=== PATIENT | female | born 1950 | race Caucasian/White ===

== ENCOUNTER → 2018-06-09 | Outpatient (CLI) | payer MEDICARE ==
--- NOTE | 2018-06-10 12:22 | MM ---
Reason for exam: screening (asymptomatic). Last mammogram was performed 3 years and 5 months ago. History: Patient is postmenopausal. Family history of breast cancer in maternal grandmother. Silicone gel implants in both breasts. Silicone gel implant in the left breast. Silicone gel implant in the right breast. Physical Findings: A clinical breast exam by your physician is recommended on an annual basis and results should be correlated with mammographic findings. MG 3D Screen Mammo Imp/Cad Bilateral CC, MLO, and ID view(s) were taken. Prior study comparison: December 26, 2014, mammogram. The breast tissue is heterogeneously dense. This may lower the sensitivity of mammography. There is chronic nodularity in the left breast. Bilateral implants are intact. ASSESSMENT: Benign, BI-RAD 2 RECOMMENDATION: Routine screening mammogram of both breasts in 1 year.
== END | disposition home or self-care (01) ==
LOC: RADMAMWWP 09:00
PROVIDERS: ATTEND Family Medicine
DX: Z12.31 Encounter for screening mammogram for malignant neoplasm of breast (principal); Z98.82 Breast implant status
CPT/HCPCS: 77063; 77067

== ENCOUNTER → 2019-04-13 | Outpatient (CLI) | payer MEDICARE | END | disposition home or self-care (01) | LOC: RADMRIMAIN 14:18 | PROVIDERS: ATTEND Surgery | DX: Z53.9 Procedure and treatment not carried out, unspecified reason (principal) ==

== ENCOUNTER → 2019-04-27 | Outpatient (CLI) | payer MEDICARE | END | disposition home or self-care (01) | LOC: RADMRIMAIN 07:54 | PROVIDERS: ATTEND Surgery | DX: Z53.9 Procedure and treatment not carried out, unspecified reason (principal) ==

== ENCOUNTER → 2019-06-22 | Outpatient (CLI) | payer MEDICARE ==
--- NOTE | 2019-06-23 09:07 | BMR ---
EXAMINATION TYPE: MR breast BILAT wo/w con DATE OF EXAM: 06/22/2019 COMPARISON: 3-D screening mammogram June 09, 2018 BI-RADS 2. HISTORY: Rt breast indentation or disorder of breast per order. Presumed abnormal physical exam. Hist ory of bilateral silicone breast implants. CONTRAST: Multiplanar, multisequence images of the breasts were acquired utilizing 5.5 mL intravenous Gadavist gadolinium contrast. TECHNIQUE: A series of fat and water weighted images in the long and short axis views of both breasts are obtained in conjunction with dynamic contrast MRI with subtraction technique. Three-dimensional and additional postprocessing imaging is created on independent workstation and reviewed during offi cial interpretation of this study. FINDINGS: There is redemonstration of bilateral subglandular silicone implants with slightly lobulate d contour and few prominent folds identified bilaterally. Intracapsular rupture cannot be excluded bi laterally but Implant sizes are fairly symmetric in appearance and felt preserved. There is no eviden ce of extraluminal silicone to suggest outer capsule rupture. There is heterogeneously dense fibroglandular tissue anterior to both implants redemonstrated. T2-stan ghted images show a few simple-appearing thin-walled cysts bilaterally, for reference there is a 5 x 3 mm thin-walled cyst medially in the left breast axial image 21 series [address]ayed postcontra [address] images show no suspicious enhancing intramammary adenopathy. With regards to the right breast. No suspicious enhancing masses or pathologic enhancement identified . No suspicious skin thickening. Chest wall is intact. No concerning axillary adenopathy is present. With regards to the left breast. No suspicious enhancing masses or pathologic enhancement. No abnorma l skin thickening. Chest wall is intact. No suspicious adenopathy noted. IMPRESSION: No MRI evidence for invasive malignancy in either breast. No MRI evidence for extracapsul ar implant rupture. BI-RADS 2 benign findings Recommendation: Manage palpable abnormality on clinical basis. Return to routine follow-up. Patient c urrently due for annual bilateral breast mammogram.
== END | disposition home or self-care (01) ==
LOC: RADMRIMAIN 08:06
PROVIDERS: ATTEND Surgery
DX: N64.9 Disorder of breast, unspecified (principal)
CPT/HCPCS: C8937; C8908; A9585; 77049

== ENCOUNTER → 2020-05-30 | Outpatient (CLI) | payer MEDICARE ==
--- NOTE | 2020-05-30 13:06 | XR ---
Right hip HISTORY: Trauma one week prior, pain 2 views of the right hip Bone mineralization, joint spaces and alignment are maintained. IMPRESSION: No fracture or dislocation is evident.
== END | disposition home or self-care (01) ==
LOC: RADXRMAIN 09:38
PROVIDERS: ATTEND Nurse Practitioner Family
DX: M25.551 Pain in right hip (principal)
CPT/HCPCS: 73502

== ENCOUNTER → 2020-07-26 | Outpatient (CLI) | payer MEDICARE ==
--- NOTE | 2020-07-26 11:03 | XR ---
EXAM TYPE: LUMBAR SPINE X RAY SERIES COMPARISON: NONE HISTORY: Right pelvic pain TECHNIQUE: 4 views are submitted. FINDINGS: Alignment is anatomic. The pedicles are intact. The transverse processes are intact. There is mode rate multilevel degenerative disc disease and facet arthropathy with the grade 1 anterolisthesis L4 o n L5. IMPRESSION: 1. Multilevel degenerative disc disease and facet arthropathy with grade 1 anterolisthesis L4 on L5. Foraminal encroachment suspected. Consider MRI follow-up.
--- NOTE | 2020-07-26 11:04 | XR ---
EXAMINATION TYPE: XR pelvis AP view DATE OF EXAM: 07/26/2020 COMPARISON: NONE HISTORY: Pain The osseous structures are intact and the joint spaces are preserved. No acute fracture is seen. Vi sualized bowel gas pattern is nonspecific. Due to change lower lumbar spine. IMPRESSION: 1. No acute fracture.
== END | disposition home or self-care (01) ==
LOC: RADXRMAIN 10:34
PROVIDERS: ATTEND Family Medicine
DX: M51.36 Other intervertebral disc degeneration, lumbar region (principal); M43.16 Spondylolisthesis, lumbar region
CPT/HCPCS: 72100; 72170

== ENCOUNTER → 2020-10-17 | Outpatient (CLI) | payer MEDICARE ==
--- NOTE | 2020-10-18 12:54 | MM ---
Reason for exam: screening (asymptomatic). Last mammogram was performed 2 years and 4 months ago. History: Patient is postmenopausal. Family history of breast cancer in maternal grandmother. Silicone gel implants in both breasts. Silicone gel implant in the left breast. Silicone gel implant in the right breast. Took hormonal contraceptives for 2 years. Physical Findings: A clinical breast exam by your physician is recommended on an annual basis and results should be correlated with mammographic findings. MG 3D Screen Mammo Imp/Cad Bilateral CC, MLO, and ID view(s) were taken. Prior study comparison: June 09, 2018, bilateral MG 3d screen mammo imp/cad. December 26, 2014, mammogram. The breast tissue is heterogeneously dense. This may lower the sensitivity of mammography. Bilateral breast implants are intact. ASSESSMENT: Negative, BI-RAD 1 RECOMMENDATION: Routine screening mammogram of both breasts in 1 year.
== END | disposition home or self-care (01) ==
LOC: RADMAMWWP 15:30
PROVIDERS: ATTEND Family Medicine
DX: Z12.31 Encounter for screening mammogram for malignant neoplasm of breast (principal); Z78.0 Asymptomatic menopausal state; Z80.3 Family history of malignant neoplasm of breast; Z79.3 Long term (current) use of hormonal contraceptives
CPT/HCPCS: 77063; 77067

== ENCOUNTER 2021-03-14 17:21 | Inpatient (IN) | payer MEDICARE ==
[~2021-03-14 17:21] MED LIST: LACTATED RINGERS 1,000 ML IV ONE; SODIUM CHLORIDE 0.9% 1,000 ML IV ONE
[2021-03-14] MEDS ORDERED: MORPHINE SULFATE 2 MG/ML SYRINGE IV STA (17:48)
--- NOTE | 2021-03-14 17:48 | ED ---
General Adult HPI - General Chief complaint: Abdominal Pain Stated complaint: GI bleed Time Seen by Provider: 03/14/21 17:30 Source: patient, EMS Mode of arrival: EMS Limitations: no limitations - History of Present Illness Initial comments: Dictation was produced using [employer] dictation software. please excuse any grammatical, word or spelling errors. Chief Complaint: 70-year-old trevor presents to the emergency department for abdominal pain and GI bleed History of Present Illness: 70-year-old feel she presents to the emergency dep artment with a one-day history of abdominal pain GI bleed. Patient states her pain is suprapubic. Patient reports that her pain is severe and radiates to the back. Patient states her symptoms began today. After the pain she noticed that she was having coffee-ground emesis and bloody stools. Patient denies any history of GI bleed. No history of abdominal infections. She does have a history of hysterectomy and tubal ligation. Patient does not have any significant comorbidities. He does not take an anti-coagulation medications. Denies any fever or constitutional symptoms. The ROS documented in this emergency department record has been reviewed and confirmed by me. Those systems with pertinent positive or negative responses have been documented in the HPI. All other systems are other negative and/or noncontributory. PHYSICAL EXAM: General Impression: Alert and oriented x3, not in acute distress HEENT: Normocephalic atraumatic, extra-ocular movements intact, pupils equal and reactive to light bilaterally, mucous membranes moist. Cardiovascular: Heart regular rate and rhythm Chest: Able to complete full sentences, no retractions, no tachypnea Abdomen: abdomen soft, mild palpable tenderness to the suprapubic area, non- distended, no organomegaly Musculoskeletal: Pulses present and equal in all extremities, no peripheral edema Motor: no focal deficits noted Neurological: CN II-XII grossly intact, no focal motor or sensory deficits noted Skin: Intact with no visualized rashes Psych: Normal affect and mood Rectal exam: There is positive blood ED course: 70-year-old female presents to the emergency Department for GI bleed and abdominal pain. Vital signs upon arrival are within acceptable limits. Laboratory evaluation obtained. CBC, metabolic panel and coag panel are within acceptable limits. No lactic acidosis. So, blood is positive. Computed tomography scan was obtained showing intussusception of the ileum. There is suspected lipoma at ileum that surgery was delayed site. There is evidence of bowel obstruction. Patient reevaluated bedside at 8:10 PM. She still symptomatic with pain in her abdomen. Patient given more IV analgesics. Case discussed with general surgery Dr. Castro. who will review the films. Dr. Castro reviewed the images and will board patient for emergent operative intervention. Patient will be nothing by mouth. Patient be admitted to Dr. Castro's service. Patient started on ceftriaxone and Flagyl. EKG interpretation: Ventricular rate 56, sinus bradycardia,. Interval 186, QRS 106, QTC 449. No HI prolongation, no QTC prolongation, no ST or T-wave changes noted. Overall, this EKG is unremarkable - Related Data Home Medications Medication Instructions Recorded Confirmed ALPRAZolam [Xanax] 0.25 mg PO HS 03/04/15 03/14/21 Multivitamins, Thera [Multivitamin] 1 tab PO DAILY 03/04/15 03/14/21 5Hydroxytryptophan(Oxitriptan) 400 mg PO DAILY 03/14/21 03/14/21 [5-Htp] Ascorbic Acid [Vitamin C] 1,000 mg PO DAILY 03/14/21 03/14/21 Calcium Carbonate [Calcium] 1,200 mg PO DAILY 03/14/21 03/14/21 Cholecalciferol [Vitamin D3 (25 50 mcg PO DAILY 03/14/21 03/14/21 Mcg = 1000 Iu)] Rosuvastatin Calcium [Crestor] 5 mg PO HS 03/14/21 03/14/21 Turmeric Root Extract [Turmeric] 500 mg PO DAILY 03/14/21 03/14/21 Allergies Allergy/AdvReac Type Severity Reaction Status Date / Time Penicillins Allergy Unknown Rash/Hives Verified 03/14/21 18:35 NUMBING INJECTION AT DENTIST Allergy Unknown Rash/Hives Uncoded 03/14/21 17:30 Review of Systems ROS Statement: Those systems with pertinent positive or pertinent negative responses have been documented in the HPI. ROS Other: All systems not noted in ROS Statement are negative. Past Medical History Past Medical History: No Reported History History of Any Multi-Drug Resistant Organisms: None Reported Past Surgical History: Hysterectomy, Tubal Ligation Additional Past Surgical History / Comment(s): LEFT EAR SURG. Past Anesthesia/Blood Transfusion Reactions: No Reported Reaction, Family History of Problems w/ Anesthesia Additional Past Anesthesia/Blood Transfusion Reaction / Comment(s): DAUGHTER = PONV Past Psychological History: Anxiety Smoking Status: Never smoker Past Alcohol Use History: Occasional Past Drug Use History: Marijuana - Past Family History Father Family Medical History: Cancer Additional Family Medical History / Comment(s): COLON CA Mother Family Medical History: No Reported History General Exam Limitations: no limitations Course Vital Signs 03/14/21 03/14/21 17:22 18:58 Temperature 98.4 F Pulse Rate 60 80 Respiratory 20 18 Rate Blood Pressure 117/62 120/63 O2 Sat by Pulse 99 95 Oximetry Medical Decision Making - Lab Data Result diagrams: 03/14/21 17:40 03/14/21 17:40 Lab Results 03/14/21 03/14/21 03/14/21 Range/Units 17:35 17:40 17:40 WBC 10.9 H (3.8-10.6) k/uL RBC 4.73 (3.80-5.40) m/uL Hgb 14.3 (11.4-16.0) gm/dL Hct 43.1 (34.0-46.0) % MCV 91.0 (80.0-100.0) fL MCH 30.2 (25.0-35.0) pg MCHC 33.2 (31.0-37.0) g/dL RDW 13.0 (11.5-15.5) % Plt Count 246 (150-450) k/uL MPV 9.0 Neutrophils % 87 % Lymphocytes % 9 % Monocytes % 2 % Eosinophils % 0 % Basophils % 0 % Neutrophils # 9.5 H (1.3-7.7) k/uL Lymphocytes # 1.0 (1.0-4.8) k/uL Monocytes # 0.3 (0-1.0) k/uL Eosinophils # 0.0 (0-0.7) k/uL Basophils # 0.0 (0-0.2) k/uL PT 10.3 (9.0-12.0) sec INR 0.9 (<1.2) APTT 23.1 (22.0-30.0) sec Sodium (137-145) mmol/L Potassium (3.5-5.1) mmol/L Chloride (98-107) mmol/L Carbon Dioxide (22-30) mmol/L Anion Gap mmol/L BUN (7-17) mg/dL Creatinine (0.52-1.04) mg/dL Est GFR (CKD-EPI)AfAm (>60 ml/min/1.73 sqM) Est GFR (CKD-EPI)NonAf (>60 ml/min/1.73 sqM) Glucose (74-99) mg/dL Plasma Lactic Acid Carlos Manuel (0.7-2.0) mmol/L Calcium (8.4-10.2) mg/dL Magnesium (1.6-2.3) mg/dL Total Bilirubin (0.2-1.3) mg/dL AST (14-36) U/L ALT (4-34) U/L Alkaline Phosphatase (38-126) U/L Total Protein (6.3-8.2) g/dL Albumin (3.5-5.0) g/dL Stool Occult Blood (Negative) Blood Type Blood Type Confirm A Positive Blood Type Recheck Bld Type Recheck Status Antibody Screen Spec Expiration Date 03/14/21 03/14/21 03/14/21 Range/Units 17:40 17:40 17:40 WBC (3.8-10.6) k/uL RBC (3.80-5.40) m/uL Hgb (11.4-16.0) gm/dL Hct (34.0-46.0) % MCV (80.0-100.0) fL MCH (25.0-35.0) pg MCHC (31.0-37.0) g/dL RDW (11.5-15.5) % Plt Count (150-450) k/uL MPV Neutrophils % % Lymphocytes % % Monocytes % % Eosinophils % % Basophils % % Neutrophils # (1.3-7.7) k/uL Lymphocytes # (1.0-4.8) k/uL Monocytes # (0-1.0) k/uL Eosinophils # (0-0.7) k/uL Basophils # (0-0.2) k/uL PT (9.0-12.0) sec INR (<1.2) APTT (22.0-30.0) sec Sodium 134 L (137-145) mmol/L Potassium 4.2 (3.5-5.1) mmol/L Chloride 101 (98-107) mmol/L Carbon Dioxide 23 (22-30) mmol/L Anion Gap 10 mmol/L BUN 12 (7-17) mg/dL Creatinine 0.55 (0.52-1.04) mg/dL Est GFR (CKD-EPI)AfAm >90 (>60 ml/min/1.73 sqM) Est GFR (CKD-EPI)NonAf >90 (>60 ml/min/1.73 sqM) Glucose 124 H (74-99) mg/dL Plasma Lactic Acid Carlos Manuel 1.2 (0.7-2.0) mmol/L Calcium 9.7 (8.4-10.2) mg/dL Magnesium 2.0 (1.6-2.3) mg/dL Total Bilirubin 0.7 (0.2-1.3) mg/dL AST 32 (14-36) U/L ALT 29 (4-34) U/L Alkaline Phosphatase 68 (38-126) U/L Total Protein 7.0 (6.3-8.2) g/dL Albumin 4.4 (3.5-5.0) g/dL Stool Occult Blood (Negative) Blood Type A Positive Blood Type Confirm Blood Type Recheck No Previous Record Bld Type Recheck Status CABO Indicated Antibody Screen NEGATIVE Spec Expiration Date 03/17/2021 - 233903/14/21 Range/Units 18:15 WBC (3.8-10.6) k/uL RBC (3.80-5.40) m/uL Hgb (11.4-16.0) gm/dL Hct (34.0-46.0) % MCV (80.0-100.0) fL MCH (25.0-35.0) pg MCHC (31.0-37.0) g/dL RDW (11.5-15.5) % Plt Count (150-450) k/uL MPV Neutrophils % % Lymphocytes % % Monocytes % % Eosinophils % % Basophils % % Neutrophils # (1.3-7.7) k/uL Lymphocytes # (1.0-4.8) k/uL Monocytes # (0-1.0) k/uL Eosinophils # (0-0.7) k/uL Basophils # (0-0.2) k/uL PT (9.0-12.0) sec INR (<1.2) APTT (22.0-30.0) sec Sodium (137-145) mmol/L Potassium (3.5-5.1) mmol/L Chloride (98-107) mmol/L Carbon Dioxide (22-30) mmol/L Anion Gap mmol/L BUN (7-17) mg/dL Creatinine (0.52-1.04) mg/dL Est GFR (CKD-EPI)AfAm (>60 ml/min/1.73 sqM) Est GFR (CKD-EPI)NonAf (>60 ml/min/1.73 sqM) Glucose (74-99) mg/dL Plasma Lactic Acid Carlos Manuel (0.7-2.0) mmol/L Calcium (8.4-10.2) mg/dL Magnesium (1.6-2.3) mg/dL Total Bilirubin (0.2-1.3) mg/dL AST (14-36) U/L ALT (4-34) U/L Alkaline Phosphatase (38-126) U/L Total Protein (6.3-8.2) g/dL Albumin (3.5-5.0) g/dL Stool Occult Blood Positive H (Negative) Blood Type Blood Type Confirm Blood Type Recheck Bld Type Recheck Status Antibody Screen Spec Expiration Date Disposition Clinical Impression: Enteric intussusception Disposition: ADMITTED IP TO THIS [facility] Condition: Critical Referrals: Max Gusman DO [Primary Care Provider] - 1-2 days
[2021-03-14] MEDS ORDERED: ONDANSETRON 4 MG/2 ML VIAL IVP STA (17:49)
[2021-03-14 17:52] LABS: Basophils % (A) 0 %; Eosinophils % (A) 0 %; HCT 43.1 % (34.0-46.0); HGB 14.3 gm/dL (11.4-16.0); Lymphocytes % (A) 9 %; MCH 30.2 pg (25.0-35.0); MCHC 33.2 g/dL (31.0-37.0); Monocytes # (A) 0.3 k/uL (0-1.0); Monocytes % (A) 2 %; Neutrophils # (A) 9.5 k/uL (1.3-7.7); Neutrophils % (A) 87 %; Platelet Count 246 k/uL (150-450); RBC 4.73 m/uL (3.80-5.40); WBC 10.9 k/uL (3.8-10.6)
[2021-03-14 17:59] LABS: ALT 29 U/L (4-34); AST 32 U/L (14-36); African American GFR (CKD) >90 (>60 ml/min/1.73 sqM); Albumin 4.4 g/dL (3.5-5.0); Alkaline Phosphatase 68 U/L (38-126); Anion Gap 10 mmol/L; Blood Urea Nitrogen 12 mg/dL (7-17); Calcium 9.7 mg/dL (8.4-10.2); Carbon Dioxide 23 mmol/L (22-30); Chloride 101 mmol/L (98-107); Glucose 124 mg/dL (74-99); Non-African American GFR(CKD) >90 (>60 ml/min/1.73 sqM); Potassium 4.2 mmol/L (3.5-5.1); Sodium 134 mmol/L (137-145); Total Bilirubin 0.7 mg/dL (0.2-1.3)
[2021-03-14 18:00] LABS: INR 0.9 (<1.2); Partial Thromboplastin Time 23.1 sec (22.0-30.0); Prothrombin Time 10.3 sec (9.0-12.0)
[2021-03-14] MEDS ORDERED: PANTOPRAZOLE 40 MG/10 ML VIAL IVP STA (19:03)
--- NOTE | 2021-03-14 20:06 | CT ---
EXAMINATION TYPE: CT angio abdomen pelvis DATE OF EXAM: 03/14/2021 COMPARISON: None HISTORY: Acute abdominal pain, rectal bleeding, nausea and vomiting. GI bleed protocol. CT DLP: 1155 mGycm Automated exposure control for dose reduction was used. CONTRAST: Performed without and with IV Contrast, patient injected with 100 mL of Isovue 300. Images obtained from the diaphragm to the floor the pelvis without and with IV contrast. There are Th ree-D postprocessed images. FINDINGS: Lung bases are clear. Heart size is normal. There is no pericardial effusion. Liver spleen stomach pa ncreas gallbladder appear intact. Bowel is not dilated. Kidneys have normal size. There is no hydrone phrosis. There is no evidence of a renal calculus. There is some dilated loops of small bowel with fecal material in the lower abdomen. These measure up to 3.4 cm. Large bowel is mostly empty. There is 2.7 cm fat density mass on the lateral aspect of th e cecum consistent with lipoma. This could be lipoma of the terminal ileum with ileocolic intussuscep tion. The contrast images show normal-sized abdominal aorta. There is arterial flow in the celiac artery an d superior mesenteric artery. There is arterial flow in the renal and iliac and femoral arteries. The re is no evidence of hemodynamic stenosis. There is no contrast extravasation. Bladder distends smoothly. The lumbar vertebrae have normal spaci ng. There is a minimal degenerative L4-5 spondylolisthesis. There is no lumbar compression fracture. The bony pelvis is intact. IMPRESSION: There is evidence of mechanical distal small bowel obstruction. There is a lipoma in the cecum that a ppears to be related to the lead point of ileocolic intussusception. No significant angiographic abnormality.
[2021-03-14] MEDS ORDERED: MORPHINE SULFATE 4 MG/ML SYRINGE IV STA (20:08)
[2021-03-14] MEDS ORDERED: NALOXONE 0.4 MG/ML 1 ML VIAL IV PRN ×2 (20:14→23:45)
[2021-03-14] MEDS ORDERED: MORPHINE SULFATE 4 MG/ML SYRINGE IV PRN (20:14)
[2021-03-14] MEDS ORDERED: SODIUM CHLORIDE 0.9% 1,000 ML IV SCH (20:15)
[2021-03-14] MEDS ORDERED: metroNIDAZOLE-NS PMX 500 MG in SALINE 1 100ML.BAG IVPB STA (20:16)
[2021-03-14] MEDS ORDERED: PROPOFOL 10 MG/ML 20 ML VIAL IV ONE (21:07)
[2021-03-14] MEDS ORDERED: NEOSTIGMINE 1 MG/ML 10 ML VIAL ONE (21:07)
[2021-03-14] MEDS ORDERED: SUCCINYLCHOLINE CHLORIDE 100 MG/5 ML SYR IV ONE (21:07)
[2021-03-14] MEDS ORDERED: PHENYLEPHRINE-0.9% NACL SYG 1,000 MCG/10 ML SYRINGE ONE (21:07)
[2021-03-14] MEDS ORDERED: fentaNYL (PF) 50 MCG/ML 2 ML AMP ONE (21:07)
[2021-03-14] MEDS ORDERED: MIDAZOLAM 2 MG/2 ML VIAL ONE (21:07)
[2021-03-14] MEDS ORDERED: GLYCOPYRROLATE 0.2 MG/ML 2 ML VIAL ONE (21:07)
[2021-03-14] MEDS ORDERED: ROCURONIUM 10 MG/ML (5 ML VIAL) IV ONE (21:07)
[2021-03-14] MEDS ORDERED: ONDANSETRON 4 MG/2 ML VIAL ONE (21:07)
--- NOTE | 2021-03-14 21:08 | P.GSHP ---
History of Present Illness H&P Date: 03/14/21 70-year-old female presents to the emergency department with severe abdominal pain that began this afternoon. She states that she began having some emesis episodes and also was noticing some blood in her stool. She states she had never had this issue previously. On workup, she did have a CT of the abdomen and pelvis that was concerning for intussusception of the ileocolic junction. Patient states her only previous abdominal surgeries are tubal ligation and hysterectomy. She denies any fevers, chills, chest pain or shortness of breath. Currently, no additional complaints. - Review of Systems All systems: negative Past Medical History Past Medical History: No Reported History History of Any Multi-Drug Resistant Organisms: None Reported Past Surgical History: Hysterectomy, Tubal Ligation Additional Past Surgical History / Comment(s): LEFT EAR SURG. Past Anesthesia/Blood Transfusion Reactions: No Reported Reaction, Family History of Problems w/ Anesthesia Additional Past Anesthesia/Blood Transfusion Reaction / Comment(s): DAUGHTER = PONV Past Psychological History: Anxiety Smoking Status: Never smoker Past Alcohol Use History: Occasional Past Drug Use History: Marijuana - Past Family History Father Family Medical History: Cancer Additional Family Medical History / Comment(s): COLON CA Mother Family Medical History: No Reported History Medications and Allergies Home Medications Medication Instructions Recorded Confirmed Type ALPRAZolam [Xanax] 0.25 mg PO HS 03/04/15 03/14/21 History Multivitamins, Thera [Multivitamin] 1 tab PO DAILY 03/04/15 03/14/21 History 5Hydroxytryptophan(Oxitriptan) 400 mg PO DAILY 03/14/21 03/14/21 History [5-Htp] Ascorbic Acid [Vitamin C] 1,000 mg PO DAILY 03/14/21 03/14/21 History Calcium Carbonate [Calcium] 1,200 mg PO DAILY 03/14/21 03/14/21 History Cholecalciferol [Vitamin D3 (25 50 mcg PO DAILY 03/14/21 03/14/21 History Mcg = 1000 Iu)] Rosuvastatin Calcium [Crestor] 5 mg PO HS 03/14/21 03/14/21 History Turmeric Root Extract [Turmeric] 500 mg PO DAILY 03/14/21 03/14/21 History Allergies Allergy/AdvReac Type Severity Reaction Status Date / Time Penicillins Allergy Unknown Rash/Hives Verified 03/14/21 18:35 NUMBING INJECTION AT DENTIST Allergy Unknown Rash/Hives Uncoded 03/14/21 17:30 Surgical - Exam Osteopathic Statement: *. No significant issues noted on an osteopathic structural exam other than those noted in the History and Physical/Consult. Vital Signs Temp Pulse Resp BP Pulse Ox 98.4 F 60 20 117/62 99 03/14/21 17:22 03/14/21 17:22 03/14/21 17:22 03/14/21 17:22 03/14/21 17:22 - General well nourished, no distress - Eyes normal ocular movement - Neck trachea midline - Respiratory normal respiratory effort - Abdomen Soft, tender to palpation in bilateral lower quadrants, mild distention, no rebound, no guarding - Psychiatric oriented to time, oriented to person, oriented to place Results - Labs 03/14/21 17:40 03/14/21 17:40 Abnormal Lab Results - Last 24 Hours (Table) 03/14/21 03/14/21 03/14/21 Range/Units 17:40 17:40 18:15 WBC 10.9 H (3.8-10.6) k/uL Neutrophils # 9.5 H (1.3-7.7) k/uL Sodium 134 L (137-145) mmol/L Glucose 124 H (74-99) mg/dL Stool Occult Blood Positive H (Negative) Diabetes panel 03/14/21 Range/Units 17:40 Sodium 134 L (137-145) mmol/L Potassium 4.2 (3.5-5.1) mmol/L Chloride 101 (98-107) mmol/L Carbon Dioxide 23 (22-30) mmol/L BUN 12 (7-17) mg/dL Creatinine 0.55 (0.52-1.04) mg/dL Glucose 124 H (74-99) mg/dL Calcium 9.7 (8.4-10.2) mg/dL AST 32 (14-36) U/L ALT 29 (4-34) U/L Alkaline Phosphatase 68 (38-126) U/L Total Protein 7.0 (6.3-8.2) g/dL Albumin 4.4 (3.5-5.0) g/dL Calcium panel 02/04/22 Range/Units 17:40 Calcium 9.7 (8.4-10.2) mg/dL Albumin 4.4 (3.5-5.0) g/dL Pituitary panel 03/14/21 Range/Units 17:40 Sodium 134 L (137-145) mmol/L Potassium 4.2 (3.5-5.1) mmol/L Chloride 101 (98-107) mmol/L Carbon Dioxide 23 (22-30) mmol/L BUN 12 (7-17) mg/dL Creatinine 0.55 (0.52-1.04) mg/dL Glucose 124 H (74-99) mg/dL Calcium 9.7 (8.4-10.2) mg/dL Adrenal panel 03/14/21 Range/Units 17:40 Sodium 134 L (137-145) mmol/L Potassium 4.2 (3.5-5.1) mmol/L Chloride 101 (98-107) mmol/L Carbon Dioxide 23 (22-30) mmol/L BUN 12 (7-17) mg/dL Creatinine 0.55 (0.52-1.04) mg/dL Glucose 124 H (74-99) mg/dL Calcium 9.7 (8.4-10.2) mg/dL Total Bilirubin 0.7 (0.2-1.3) mg/dL AST 32 (14-36) U/L ALT 29 (4-34) U/L Alkaline Phosphatase 68 (38-126) U/L Total Protein 7.0 (6.3-8.2) g/dL Albumin 4.4 (3.5-5.0) g/dL Assessment and Plan Plan: 70-year-old female with concern for intussusception of the ileocolic junction. Currently, only mild leukocytosis of 10.9. Plan is for exploratory laparotomy with reduction of intussusception and likely bowel resection. This was discussed with the patient in depth along with possibility of ostomy creation. Patient was explained the risks, benefits and alternatives to the procedure and did provide consent prior to attending the operating suite. Her was also present for this discussion. Patient will be provided with preoperative VTE prophylaxis and antibiotics. Further recommendations after procedure.
[2021-03-14] MEDS ORDERED: SODIUM CHLORIDE 0.9% 1,000 ML IV ONE (22:00)
[2021-03-14] MEDS ORDERED: LACTATED RINGERS 1,000 ML IV ONE (22:00)
[2021-03-14] MEDS ORDERED: HYDROmorphone 0.5 MG/0.5 ML SYRINGE IVP ONE (22:37)
[2021-03-14] MEDS ORDERED: HYDROmorphone 0.5 MG/0.5 ML SYRINGE IVP PRN (22:41)
[2021-03-14] MEDS ORDERED: ONDANSETRON 4 MG/2 ML VIAL IVP PRN (22:41)
--- NOTE | 2021-03-14 22:41 | P.OP ---
Date of Procedure: 03/14/21 Preoperative Diagnosis: Intussusception Postoperative Diagnosis: Small bowel intussusception Procedure(s) Performed: Exploratory laparotomy, reduction of intussusception, small bowel resection and anastomosis Anesthesia: MARK Surgeon: Efra Castro Pathology: other (small bowel intussusception) Condition: stable Disposition: floor Indications for Procedure: 70-year-old female presented to the emergency department with complaints of sudden onset abdominal pain that began this afternoon. She also was noted to have nausea, vomiting blood per rectum. On workup, there was concern for intussusception of the ileocolic region on CT of the abdomen and pelvis. Secondary to this, plan is for exploratory laparotomy. Risks, benefits and alternatives were presented to the patient and she did provide consent prior to attending the operating suite. Operative Findings: Small bowel intussusception at the distal ileum Description of Procedure: The patient was brought to the operating suite and placed in supine position on the operating table. Sedation was provided by anesthesia and the patient underwent endotracheal intubation. The patient was prepped and draped in regular sterile fashion. A midline vertical incision was made and dissection wa s carried to the fascia. The fascia was incised along the length of the incision. Immediate evisceration of dilated bowel was noted. The bowel was run from the ligament of Treitz distally. The terminal ileum was noted to have the intussusception of concern. Manual milking of the intussusceptum out of the intussuscipiens was performed. After reduction, bowel did not appear ischemic. Confirmation was made by using Doppler on the mesentery. Strong flow was noted through strong Doppler signals. The source of the intussusception was noted to be a palpable mass of the small bowel wall. Proximal and distal locations were decided upon for resection of this portion of the small bowel that contained this mass. Mesenteric defects were created and the small bowel was ligated using a YULISSA stapler 75. Enseal device was then used to dissect and ligate the specimen from the mesentery. At this point, a [id number], functional end to end anastomosis was created by creating 2 enterotomies and firing and YULISSA stapler 75 to create the anastomosis. TX 60 stapler was then used to close the following enterotomy. The staple line was then imbricated using interrupted 3-0 Vicryl suture. The resulting mesenteric defect was also closed using a running 3-0 Vicryl suture. Copious muss irrigation was then placed and removed from the abdomen. The incision was closed running looped PDS suture. Skin brice were placed. Sterile dressing was applied. The patient was awakened in the operating suite and taken to postanesthesia care unit in stable condition.
[2021-03-14] MEDS: HYDROmorphone 0.5 MG/0.5 ML SYRINGE IVP ONE ×2 (22:42→22:57)
[2021-03-14] MEDS ORDERED: HYDROmorphone 1 MG/ML 1 ML SYRINGE IVP ONE (22:49)
[2021-03-14] MEDS ORDERED: diphenhydrAMINE 50 MG/ML 1 ML VIAL IVP ONE (22:56)
[2021-03-14] MEDS: HYDROmorphone 1 MG/ML 1 ML SYRINGE IVP ONE ×2 (23:04→23:14)
[2021-03-14] MEDS ORDERED: ACETAMINOPHEN IV (For NPO) 1,000 MG/100 ML VIAL IVPB ONE (23:14)
[2021-03-14] MEDS ORDERED: ROPIVACAINE 5 MG/ML 30 ML VIAL EPIDURAL ONE (23:37)
--- NOTE | 2021-03-14 23:48 | P.ANPRN ---
Procedure Note - Anesthesia - Epidural/Spinal Epidural Continuous Time Out Performed: Yes Date of Procedure: 03/14/21 Procedure Start Time: 23:35 Procedure Stop Time: 23:47 Location of Patient: Phase I Indication: Acute Post-Operative Pain, Requested by Surgeon Sedation Type: Awake Preparation: Sterile Dressing Position: Sitting Catheter: Indwelling Needle Guage: 18 Injectate: Test Dose Lidocaine1.5% w/1:200,000 epi Blood Aspirated: No Pain Paresthesia on Injection Noted: No Events: Uneventful and Well Tolerated
[2021-03-14] MEDS: PHENYLEPHRINE 10 MG/ML VIAL IV ONE ×2 (23:54→23:56)
[2021-03-15] MEDS: PHENYLEPHRINE 10 MG/ML VIAL IV ONE (00:01)
[2021-03-15] MEDS: ePHEDrine 50 MG/ML 1 ML AMP IVP ONE ×4 (00:06→00:50)
[2021-03-15] MEDS: ROPIVACAINE 400 MG, HYDROMORPHONE (PF) 5 MG in SODIUM CHLORIDE 0.9% 170 ML EPIDURAL PRN ×2 (00:32→08:53)
[2021-03-15] MEDS: LACTATED RINGERS 1,000 ML IV SCH ×4 (04:03→22:50)
[2021-03-15] MEDS: HEPARIN SODIUM,PORCINE/PF 5,000 UNIT/0.5 ML SYRINGE SQ SCH ×4 (04:04→23:24)
--- NOTE | 2021-03-15 07:13 | P.PN ---
Progress Note - Text Progress Note Date: 03/15/21 Patient without complaints. Pain controlled. Epidural @ 4 ml/hr. Denies lower extremity weakness. Denies headache. Epidural site clean and dry. POD#1 s/p exlap - continue current epidural rate
[2021-03-15] MEDS: PANTOPRAZOLE 40 MG/10 ML VIAL IV SCH (07:34)
--- NOTE | 2021-03-15 09:22 | P.PN ---
Subjective Progress Note Date: 03/15/21 Patient seen and examined at bedside. States pain level is about a 2 out of 10. Denies nausea or vomiting. No bowel function. Denies any dizziness or headache at this time. Overnight, patient with some hypotensive episodes after epidural was placed. Objective - Vital Signs Vital signs: Vital Signs Temp 98.5 F 03/15/21 07:29 Pulse 95 03/15/21 04:35 Resp 16 03/15/21 07:30 BP 86/43 03/15/21 08:00 Pulse Ox 98 03/15/21 07:29 Intake & Output 03/14/21 03/15/21 03/15/21 18:59 06:59 18:59 Intake Total 400 700 Output Total 330 Balance 400 370 Weight 55.792 kg 55.792 kg Intake: IV 400 700 Output: Urine 300 Estimated Blood Loss 30 Other: Voiding Method Indwelling Catheter Indwelling Catheter - Constitutional General appearance: Present: cooperative, no acute distress - Respiratory Details: No difficulty with respiration - Gastrointestinal Gastrointestinal Comment(s): Soft, appropriate tenderness, nondistended, no rebound, no guarding - Psychiatric Psychiatric: Present: A&O x's 3 - Labs CBC & Chem 7: 03/14/21 17:40 03/14/21 17:40 Labs: Abnormal Lab Results - Last 24 Hours (Table) 03/14/21 03/14/21 03/14/21 Range/Units 17:40 17:40 18:15 WBC 10.9 H (3.8-10.6) k/uL Neutrophils # 9.5 H (1.3-7.7) k/uL Sodium 134 L (137-145) mmol/L Glucose 124 H (74-99) mg/dL Stool Occult Blood Positive H (Negative) Assessment and Plan Plan: 70-year-old female status post exploratory laparotomy and small bowel resection with reduction of intussusception. She is postoperative day #1. The patient has had some hypotensive episodes overnight. This was discussed with nursing and plan is for decreasing dose of epidural in seeing response. We will continue Welch catheter for strict I's and O's. We will also continue IV fluid resuscitation. Patient is not showing any signs of tachycardia at this time. She has no complaints. We will continue to closely monitor. I did recommend out of bed to the chair this morning. Keep nasogastric tube to low intermittent suction. Continue nothing by mouth until there is further bowel function. Continue IV antibiotics. Medical consult has been placed.
[2021-03-15] MEDS: metroNIDAZOLE-NS PMX 500 MG in SALINE 1 100ML.BAG IVPB SCH ×2 (10:44→18:17)
[2021-03-15 11:14] LABS: Basophils # (A) 0.03 X 10*3/uL (0.00-0.10); Basophils % (A) 0.2 %; Eosinophils # (A) 0 X 10*3/uL (0.04-0.35); Eosinophils % (A) 0 %; HCT 34.6 % (37.2-46.3); HGB 10.9 g/dL (12.0-15.0); Immature Grans, Automated 0.2 %; Lymphocytes # (A) 1.47 X 10*3/uL (0.90-5.00); Lymphocytes % (A) 11.9 %; MCH 29.2 pg (27.0-32.0); MCHC 31.5 g/dL (32.0-37.0); MCV 92.8 fL (80.0-97.0); Monocytes # (A) 0.64 X 10*3/uL (0.20-1.00); Monocytes % (A) 5.2 %; NRBC Per 100 WBC 0 /100 WBCS (0.0-0.0); Neutrophils % (A) 82.5 %; Platelet Count 201 X 10*3/uL (140-440); RBC 3.73 X 10*6/uL (4.10-5.20); RDW 13.2 % (11.5-14.5); WBC 12.37 X 10*3/uL (4.50-10.00)
[2021-03-15 11:21] LABS: African American GFR (CKD) 114.5 (60.0-200.0); Albumin 3.2 g/dL (3.8-4.9); Albumin/Globulin Ratio 2.46 (1.60-3.17); Anion Gap 8.4 mmol/L (10.00-18.00); BUN/Creat Ratio 12.8 Ratio (12.00-20.00); Blood Urea Nitrogen 6.4 mg/dL (9.0-27.0); Calcium 8.3 mg/dL (8.7-10.3); Carbon Dioxide 25.6 mmol/L (20.0-27.5); Globulin 1.3 g/dL (1.6-3.3); Non-African American GFR(CKD) 98.8 (60.0-200.0); Potassium 4.4 mmol/L (3.5-5.5); Total Bilirubin 0.3 mg/dL (0.30-1.20); Total Protein 4.5 g/dL (6.2-8.2)
--- NOTE | 2021-03-15 13:23 | P.CONS ---
History of Present Illness - Reason for Consult Intussusception - History of Present Illness Patient is pleasant 70-year-old female came in with the severe abdominal pain which started yesterday afternoon with the episodes of nausea vomiting along with blood in the stools. Patient had an abdominal CT which showed intussusception at the ileocolic junction patient underwent the laparotomy didn't do cessation was reduced and patient underwent resection of the bowel and anastomosis. Patient was only has an epidural patient is a drowsy be tired didn't pass gas yet. Pain is fairly well-controlled patient is presently has an epidural and Welch catheter in place. Patient has some leukocytosis. Patient is presently on Rocephin and metronidazole as per general surgery. REVIEW OF SYSTEMS: CONSTITUTIONAL: No fever, no malaise, no fatigue. HEENT: No recent visual problems or hearing problems. Denied any sore throat. CARDIOVASCULAR: No chest pain, orthopnea, PND, no palpitations, no syncope. PULMONARY: No shortness of breath, no cough, no hemoptysis. GASTROINTESTINAL: As mentioned in HPI NEUROLOGICAL: No headaches, no weakness, no numbness. HEMATOLOGICAL: Denies any bleeding or petechiae. GENITOURINARY: Denies any burning micturition, frequency, or urgency. MUSCULOSKELETAL/RHEUMATOLOGICAL: Denies any joint pain, swelling, or any muscle pain. ENDOCRINE: Denies any polyuria or polydipsia. The rest of the 14-point review of systems is negative. PHYSICAL EXAMINATION: GENERAL: Patient is drowsy and lethargic, not in any acute distress. Well developed, well nourished. HEENT: Pupils are round and equally reacting to light. EOMI. No scleral icterus. No conjunctival pallor. Normocephalic, atraumatic. No pharyngeal erythema. No thyromegaly. CARDIOVASCULAR: S1 and S2 present. No murmurs, rubs, or gallops. PULMONARY: Chest is clear to auscultation, no wheezing or crackles. ABDOMEN: Abdominal binder in place sluggish bowel sounds MUSCULOSKELETAL: No joint swelling or deformity. EXTREMITIES: No cyanosis, clubbing, or pedal edema. NEUROLOGICAL: Gross neurological examination did not reveal any focal deficits. SKIN: No rashes. Assessment and plan -Abdominal pain secondary to intussusception patient is status post laparotomy, bowel resection and end-to-end anastomosis. Continue incentive spirometry patient pain is fairly well controlled. -Leukocytosis secondary to above and patient is presently on Rocephin and metronidazole which will continue -Hypervolemic hyponatremia received IV fluids with improvement in serum sodium. -Hyperlipidemia: Patient will be resumed on statin DVT prophylaxis: As per primary service Past Medical History Past Medical History: No Reported History History of Any Multi-Drug Resistant Organisms: None Reported Past Surgical History: Hysterectomy, Tubal Ligation Additional Past Surgical History / Comment(s): LEFT EAR SURG. Past Anesthesia/Blood Transfusion Reactions: No Reported Reaction, Family History of Problems w/ Anesthesia Additional Past Anesthesia/Blood Transfusion Reaction / Comm: DAUGHTER = PONV Past Psychological History: Anxiety Additional Psychological History / Comment(s): STATES NO PROBLEM NOW. Smoking Status: Never smoker Past Alcohol Use History: Occasional Past Drug Use History: Marijuana - Past Family History Father Family Medical History: Cancer Additional Family Medical History / Comment(s): COLON CA Mother Family Medical History: No Reported History Medications and Allergies Home Medications Medication Instructions Recorded Confirmed Type ALPRAZolam [Xanax] 0.25 mg PO HS 03/04/15 03/14/21 History Multivitamins, Thera [Multivitamin] 1 tab PO DAILY 03/04/15 03/14/21 History 5Hydroxytryptophan(Oxitriptan) 400 mg PO DAILY 03/14/21 03/14/21 History [5-Htp] Ascorbic Acid [Vitamin C] 1,000 mg PO DAILY 03/14/21 03/14/21 History Calcium Carbonate [Calcium] 1,200 mg PO DAILY 03/14/21 03/14/21 History Cholecalciferol [Vitamin D3 (25 50 mcg PO DAILY 03/14/21 03/14/21 History Mcg = 1000 Iu)] Rosuvastatin Calcium [Crestor] 5 mg PO HS 03/14/21 03/14/21 History Turmeric Root Extract [Turmeric] 500 mg PO DAILY 03/14/21 03/14/21 History Allergies Allergy/AdvReac Type Severity Reaction Status Date / Time Penicillins Allergy Unknown Rash/Hives Verified 03/14/21 18:35 NUMBING INJECTION AT DENTIST Allergy Unknown Rash/Hives Uncoded 03/14/21 17:30 Physical Exam Vitals: Vital Signs Temp Pulse Pulse Resp BP BP Pulse Ox 03/15/21 10:41 100/61 03/15/21 08:00 86/43 03/15/21 07:30 16 03/15/21 07:29 98.5 F 16 82/37 98 03/15/21 04:35 95 86/43 98 03/15/21 04:20 88 89/48 99 03/15/21 04:05 85 89/48 99 03/15/21 03:50 91 90/50 100 03/15/21 03:35 91 88/48 100 03/15/21 03:20 86 91/49 99 03/15/21 03:05 92 95/57 100 03/15/21 02:50 94 93/52 94 L 03/15/21 02:35 96 93/53 03/15/21 02:22 96 18 100/58 100 03/15/21 02:02 86 18 94/52 99 03/15/21 01:47 88 16 92/45 99 03/15/21 01:31 90 16 91/52 98 03/15/21 01:01 82 16 83/47 99 03/15/21 00:46 88 16 87/50 98 03/15/21 00:31 77 16 96/55 99 03/15/21 00:16 98 16 73/38 98 03/15/21 00:01 54 L 16 68/38 98 03/14/21 23:46 54 L 16 66/38 97 03/14/21 23:31 66 16 119/58 100 03/14/21 23:16 66 16 126/60 100 03/14/21 23:01 67 16 149/64 100 03/14/21 22:46 84 18 138/69 99 03/14/21 22:35 97.9 F 78 18 143/63 94 L 03/14/21 21:10 80 18 110/80 96 03/14/21 18:58 80 18 120/63 95 03/14/21 17:22 98.4 F 60 20 117/62 99 Intake and Output 03/14/21 03/15/21 03/15/21 22:59 06:59 14:59 Intake Total 700 Output Total 330 Balance 370 Intake: IV 700 Output: Urine 300 Estimated Blood Loss 30 Other: Voiding Method Indwelling Catheter Indwelling Catheter Weight 55.792 kg 55.792 kg Results CBC & Chem 7: 03/15/21 07:28 03/15/21 07:28 Labs: Abnormal Lab Results - Last 24 Hours (Table) 03/14/21 03/14/21 03/14/21 Range/Units 17:40 17:40 18:15 WBC 10.9 H (3.8-10.6) k/uL RBC (4.10-5.20) X 10*6/uL Hgb (12.0-15.0) g/dL Hct (37.2-46.3) % MCHC (32.0-37.0) g/dL Neutrophils # 9.5 H (1.3-7.7) k/uL Eosinophils # (0.04-0.35) X 10*3/uL Sodium 134 L (137-145) mmol/L Anion Gap (10.00-18.00) mmol/L BUN (9.0-27.0) mg/dL Creatinine (0.6-1.5) mg/dL Glucose 124 H (74-99) mg/dL Calcium (8.7-10.3) mg/dL Total Protein (6.2-8.2) g/dL Albumin (3.8-4.9) g/dL Globulin (1.6-3.3) g/dL Stool Occult Blood Positive H (Negative) 03/15/21 03/15/21 Range/Units 07:28 07:28 WBC 12.37 H (3.8-10.6) k/uL RBC 3.73 L (4.10-5.20) X 10*6/uL Hgb 10.9 L (12.0-15.0) g/dL Hct 34.6 L (37.2-46.3) % MCHC 31.5 L (32.0-37.0) g/dL Neutrophils # 10.20 H (1.3-7.7) k/uL Eosinophils # 0 L (0.04-0.35) X 10*3/uL Sodium (137-145) mmol/L Anion Gap 8.40 L (10.00-18.00) mmol/L BUN 6.4 L (9.0-27.0) mg/dL Creatinine 0.5 L (0.6-1.5) mg/dL Glucose (74-99) mg/dL Calcium 8.3 L (8.7-10.3) mg/dL Total Protein 4.5 L (6.2-8.2) g/dL Albumin 3.2 L (3.8-4.9) g/dL Globulin 1.3 L (1.6-3.3) g/dL Stool Occult Blood (Negative)
[2021-03-15] MEDS: NALBUPHINE 10 MG/ML (1 ML AMP) IV PRN (19:14)
[2021-03-15] MEDS: AMPICILLIN-SULBACTAM 3 GM in SODIUM CHLORIDE 0.9% 100 ML IVPB SCH (20:11)
[2021-03-15] MEDS: ATORVASTATIN 10 MG TAB PO SCH (21:10)
[2021-03-15] MEDS: HYDROmorphone 1 MG/ML 1 ML SYRINGE IVP PRN (22:49)
[2021-03-16] MEDS: metroNIDAZOLE-NS PMX 500 MG in SALINE 1 100ML.BAG IVPB SCH ×3 (02:34→19:01)
[2021-03-16] MEDS: LACTATED RINGERS 1,000 ML IV SCH ×3 (07:51→19:02)
[2021-03-16] MEDS: PANTOPRAZOLE 40 MG/10 ML VIAL IV SCH (08:03)
[2021-03-16] MEDS: HEPARIN SODIUM,PORCINE/PF 5,000 UNIT/0.5 ML SYRINGE SQ SCH ×3 (08:03→23:28)
--- NOTE | 2021-03-16 08:51 | P.PN ---
Progress Note - Text Progress Note Date: 03/16/21 Patient without complaints. Pain controlled. Epidural @ 3 ml/hr. Denies lower extremity weakness. Denies headache. Epidural site clean and dry. OOB several times yesterday. POD#2 s/p exlap - continue current epidural rate
[2021-03-16] MEDS ORDERED: NON FORMULARY DRUG (5hydroxytryptophan(Oxitriptan) [5-Htp] 200 MG Capsule) PO SCH (09:00)
--- NOTE | 2021-03-16 09:59 | P.PN ---
Subjective Progress Note Date: 03/16/21 Patient seen and examined at bedside. States that she is having a headache. Denies any flatus. Denies nausea or vomiting. States pain is well-controlled. Has gotten out of bed into the chair. Objective - Vital Signs Vital signs: Vital Signs Temp 98.8 F 03/16/21 08:00 Pulse 92 03/16/21 08:00 Resp 16 03/16/21 08:00 BP 105/57 03/16/21 08:00 Pulse Ox 97 03/16/21 08:00 Intake & Output 03/15/21 03/16/21 03/16/21 18:59 06:59 18:59 Output Total 650 Balance -650 Output: Urine 650 Other: Voiding Method Indwelling Catheter Indwelling Catheter - Constitutional General appearance: Present: cooperative, no acute distress - Respiratory Details: No difficulty with respiration - Gastrointestinal Gastrointestinal Comment(s): Soft, appropriate tenderness, nondistended, no rebound, no guarding, midline incision with surgical dressing in place - Musculoskeletal Musculoskeletal: Present: generalized weakness - Psychiatric Psychiatric: Present: A&O x's 3 - Labs CBC & Chem 7: 03/15/21 07:28 03/15/21 07:28 Labs: Abnormal Lab Results - Last 24 Hours (Table) 03/15/21 03/15/21 Range/Units 07:28 07:28 WBC 12.37 H (4.50-10.00) X 10*3/uL RBC 3.73 L (4.10-5.20) X 10*6/uL Hgb 10.9 L (12.0-15.0) g/dL Hct 34.6 L (37.2-46.3) % MCHC 31.5 L (32.0-37.0) g/dL Neutrophils # 10.20 H (1.80-7.70) X 10*3/uL Eosinophils # 0 L (0.04-0.35) X 10*3/uL Anion Gap 8.40 L (10.00-18.00) mmol/L BUN 6.4 L (9.0-27.0) mg/dL Creatinine 0.5 L (0.6-1.5) mg/dL Calcium 8.3 L (8.7-10.3) mg/dL Total Protein 4.5 L (6.2-8.2) g/dL Albumin 3.2 L (3.8-4.9) g/dL Globulin 1.3 L (1.6-3.3) g/dL Assessment and Plan Plan: Postoperative day #2, expiratory laparotomy, reduction of intussusception, small bowel resection. - Continue nasogastric tube and nothing by mouth until further bowel function - Continue to increase activity, continue incentive spirometry. - Awaiting labs today - Continue medical management, appreciate recommendations. - Awaiting pathology
--- NOTE | 2021-03-16 10:04 | P.PN ---
Subjective Patient is pleasant 70-year-old female came in with the severe abdominal pain which started yesterday afternoon with the episodes of nausea vomiting along with blood in the stools. Patient had an abdominal CT which showed intussusception at the ileocolic junction patient underwent the laparotomy didn't do cessation was reduced and patient underwent resection of the bowel and anastomosis. Patient was only has an epidural patient is a drowsy be tired didn't pass gas yet. Pain is fairly well-controlled patient is presently has an epidural and Welch catheter in place. Patient has some leukocytosis. Patient is presently on Rocephin and metronidazole as per general surgery. 03/16/2021 Patient is doing much better feeling much better still has an NG tube drainage about 300 mL since last night. Patient is on 1 25 mL of normal saline which will cut it down to 100 mL of normal saline. Patient the has sluggish bowel sounds in pass gas yet still has epidural in place. Pain is well controlled. Constitutional: Denied any fatigue denied any fever. Cardio vascular: denied any chest pain, palpitations Gastrointestinal denied any nausea vomiting Pulmonary: Denied any shortness of breath cough Neurologic denied any new focal deficits All inpatient medications were reviewed and appropriate changes in these medications as dictated in the interval history and assessment and plan. PHYSICAL EXAMINATION: GENERAL: Patient is drowsy and lethargic, not in any acute distress. Well developed, well nourished. HEENT: Pupils are round and equally reacting to light. EOMI. No scleral icterus. No conjunctival pallor. Normocephalic, atraumatic. No pharyngeal erythema. No thyromegaly. CARDIOVASCULAR: S1 and S2 present. No murmurs, rubs, or gallops. PULMONARY: Chest is clear to auscultation, no wheezing or crackles. ABDOMEN: Abdominal binder in place sluggish bowel sounds MUSCULOSKELETAL: No joint swelling or deformity. EXTREMITIES: No cyanosis, clubbing, or pedal edema. NEUROLOGICAL: Gross neurological examination did not reveal any focal deficits. SKIN: No rashes. Assessment and plan -Abdominal pain secondary to intussusception patient is status post laparotomy, bowel resection and end-to-end anastomosis. Continue incentive spirometry patient pain is fairly well controlled. -Leukocytosis secondary to above and patient is presently on Rocephin and metronidazole which will continue -Hypervolemic hyponatremia received IV fluids with improvement in serum sodium. On 100 cc NS. -Hyperlipidemia: Patient will be resumed on statin DVT prophylaxis: As per primary service Objective - Vital Signs Vital signs: Vital Signs Temp 98.8 F 03/16/21 08:00 Pulse 92 03/16/21 08:00 Resp 16 03/16/21 08:00 BP 105/57 03/16/21 08:00 Pulse Ox 97 03/16/21 08:00 Intake & Output 03/15/21 03/16/21 03/16/21 18:59 06:59 18:59 Output Total 650 Balance -650 Output: Urine 650 Other: Voiding Method Indwelling Catheter Indwelling Catheter - Labs CBC & Chem 7: 03/15/21 07:28 03/15/21 07:28 Labs: Abnormal Lab Results - Last 24 Hours (Table) 03/15/21 03/15/21 Range/Units 07:28 07:28 WBC 12.37 H (4.50-10.00) X 10*3/uL RBC 3.73 L (4.10-5.20) X 10*6/uL Hgb 10.9 L (12.0-15.0) g/dL Hct 34.6 L (37.2-46.3) % MCHC 31.5 L (32.0-37.0) g/dL Neutrophils # 10.20 H (1.80-7.70) X 10*3/uL Eosinophils # 0 L (0.04-0.35) X 10*3/uL Anion Gap 8.40 L (10.00-18.00) mmol/L BUN 6.4 L (9.0-27.0) mg/dL Creatinine 0.5 L (0.6-1.5) mg/dL Calcium 8.3 L (8.7-10.3) mg/dL Total Protein 4.5 L (6.2-8.2) g/dL Albumin 3.2 L (3.8-4.9) g/dL Globulin 1.3 L (1.6-3.3) g/dL
[2021-03-16 11:09] LABS: Basophils % (A) 0 %; Eosinophils % (A) 0 %; HCT 35.7 % (34.0-46.0); HGB 11.6 gm/dL (11.4-16.0); Lymphocytes % (A) 12 %; MCH 31.1 pg (25.0-35.0); MCHC 32.6 g/dL (31.0-37.0); MCV 95.4 fL (80.0-100.0); Mean Platelet Volume 8.2; Monocytes # (A) 0.3 k/uL (0-1.0); Monocytes % (A) 4 %; Neutrophils # (A) 6.7 k/uL (1.3-7.7); Neutrophils % (A) 82 %; Platelet Count 193 k/uL (150-450); RBC 3.75 m/uL (3.80-5.40); RDW 13.2 % (11.5-15.5); WBC 8.1 k/uL (3.8-10.6)
[2021-03-16 11:27] LABS: African American GFR (CKD) >90 (>60 ml/min/1.73 sqM); Anion Gap 4 mmol/L; Blood Urea Nitrogen 7 mg/dL (7-17); Calcium 8.4 mg/dL (8.4-10.2); Carbon Dioxide 27 mmol/L (22-30); Chloride 103 mmol/L (98-107); Glucose 74 mg/dL (74-99); Non-African American GFR(CKD) >90 (>60 ml/min/1.73 sqM); Potassium 3.8 mmol/L (3.5-5.1); Sodium 134 mmol/L (137-145)
[2021-03-16] MEDS: NALBUPHINE 10 MG/ML (1 ML AMP) IV PRN (14:36)
[2021-03-16] MEDS: ATORVASTATIN 10 MG TAB PO SCH (21:09)
[2021-03-17] MEDS: metroNIDAZOLE-NS PMX 500 MG in SALINE 1 100ML.BAG IVPB SCH ×3 (02:01→18:56)
--- NOTE | 2021-03-17 07:15 | P.PN ---
Progress Note - Text Progress Note Date: 03/17/21 Patient without complaints. Pain controlled. Epidural @ 3 ml/hr. Denies lower extremity weakness. Denies headache. Epidural site clean and dry. OOB several times yesterday. POD#3 s/p exlap - continue current epidural rate - plan on transition to IV pain medication today with epidural d/c tonight or tomorrow morning.
[2021-03-17] MEDS: HEPARIN SODIUM,PORCINE/PF 5,000 UNIT/0.5 ML SYRINGE SQ SCH ×3 (07:46→23:50)
[2021-03-17] MEDS: NALBUPHINE 10 MG/ML (1 ML AMP) IV PRN (08:14)
[2021-03-17] MEDS: PANTOPRAZOLE 40 MG/10 ML VIAL IV SCH (08:14)
[2021-03-17] MEDS: LACTATED RINGERS 1,000 ML IV SCH ×3 (08:15→23:50)
[2021-03-17] MEDS ORDERED: ONDANSETRON 4 MG/2 ML VIAL IVP PRN (09:53)
[2021-03-17] MEDS ORDERED: HYDROmorphone 0.5 MG/0.5 ML SYRINGE IVP PRN (09:53)
[2021-03-17] MEDS ORDERED: LACTATED RINGERS 1,000 ML IV SCH (09:53)
--- NOTE | 2021-03-17 10:11 | P.PN ---
Subjective Progress Note Date: 03/17/21 Patient seen and examined at bedside. Denies any abdominal pain. No flatus or bowel movement as of yet. Has been up in the chair. No additional complaints. Objective - Vital Signs Vital signs: Vital Signs Temp 98.2 F 03/17/21 08:15 Pulse 82 03/17/21 08:15 Resp 16 03/17/21 08:15 BP 120/70 03/17/21 08:15 Pulse Ox 98 03/17/21 08:15 Intake & Output 03/16/21 03/17/21 03/17/21 18:59 06:59 18:59 Output Total 200 1500 Balance -200 -1500 Output: Gastric Drainage 100 Urine 200 1400 Other: Voiding Method Indwelling Catheter Indwelling Catheter Indwelling Catheter # Voids 3 - Constitutional General appearance: Present: cooperative, no acute distress - Respiratory Details: No difficulty with respiration - Gastrointestinal Gastrointestinal Comment(s): Soft, nontender, nondistended, no rebound, no guarding, midline incision with surgical dressing in place - Psychiatric Psychiatric: Present: A&O x's 3 - Labs CBC & Chem 7: 03/16/21 10:33 03/16/21 10:33 Labs: Abnormal Lab Results - Last 24 Hours (Table) 03/16/21 03/16/21 Range/Units 10:33 10:33 RBC 3.75 L (3.80-5.40) m/uL Sodium 134 L (137-145) mmol/L Assessment and Plan Plan: Postoperative day #3, exploratory laparotomy, reduction of intussusception, small bowel resection. - Continue nasogastric tube and nothing by mouth until further bowel function, We can clamp the nasogastric tube while the patient ambulates - Continue to increase activity, continue incentive spirometry. - Continue epidural for pain control - Continue medical management, appreciate recommendations. - Awaiting pathology
[2021-03-17] MEDS ORDERED: ACETAMINOPHEN IV (For NPO) 1,000 MG in EMPTY BAG 1 BAG IVPB PRN (14:13)
--- NOTE | 2021-03-17 17:10 | P.PN ---
Subjective Progress Note Date: 03/17/21 This is a 70-year-old status post laparotomy, bowel resection with end to end anastomosis secondary to intussusception. Reports she has been up in the chair. Eagerly awaiting to ambulate. Denies nausea. Denies bowel movement or flatus,NG tube present. Pain controlled with epidural. Pathology pending. Maintained on ceftriaxone and metronidazole.Afebrile Objective - Vital Signs Vital signs: Vital Signs Temp 98.2 F 03/17/21 08:15 Pulse 82 03/17/21 08:15 Resp 16 03/17/21 08:15 BP 120/70 03/17/21 08:15 Pulse Ox 98 03/17/21 08:15 Intake & Output 03/16/21 03/17/21 03/17/21 18:59 06:59 18:59 Output Total 200 1500 Balance -200 -1500 Output: Gastric Drainage 100 Urine 200 1400 Other: Voiding Method Indwelling Catheter Indwelling Catheter Indwelling Catheter # Voids 3 - Exam PHYSICAL EXAM: VITAL SIGNS: As above GENERAL: Alert and oriented 3, Sitting up in bed, no acute distress. HEENT: Conjunctivae normal. eyes normal. NECK: No JVD. No thyroid enlargement. No LNs CARDIOVASCULAR: S1, S2 regular.. No murmur RESPIRATION: Breath sounds diminished in the bases. No rhonchi or crackles. No bronchial breathing. ABDOMEN: Soft, nontender . Nondistended ,No guarding. Abdominal binder/dressing clean dry and intact. Positive Bowel sounds. LEGS: No edema. no swelling NERVOUS SYSTEM: Cranial N 2-12 grossly normal.Diffuse weakness No focal deficits.Strength and sensation grossly intact.. Skin: Warm and dry, no rash. - Labs CBC & Chem 7: 03/16/21 10:33 03/16/21 10:33 Assessment and Plan Assessment: -Abdominal pain secondary to intussusception patient is status post laparotomy, bowel resection and end-to-end anastomosis. -Leukocytosis secondary to the above -Hypervolemic hyponatremia Hyperlipidemia Plan: Continue on current medication regime ,monitoring and symptomatic treatment. Pain management as per primary .DVT prophylaxis in place with heparin subcu. Continues on IV antibiotics. Increase ambulation as tolerated. Aggressive pulmonary toileting with incentive spirometer reinforced. The impression and plan of care has been dictated as directed. : I performed a history and examination of this patient, discussed the same with the dictator. I agree with the dictator's note ,documented as a scribe. Any additional findings or plans will be noted.
[2021-03-17] MEDS: ATORVASTATIN 10 MG TAB PO SCH (20:12)
[2021-03-18] MEDS: metroNIDAZOLE-NS PMX 500 MG in SALINE 1 100ML.BAG IVPB SCH ×3 (02:19→19:29)
[2021-03-18] MEDS: HEPARIN SODIUM,PORCINE/PF 5,000 UNIT/0.5 ML SYRINGE SQ SCH ×3 (07:35→23:13)
[2021-03-18] MEDS: PANTOPRAZOLE 40 MG/10 ML VIAL IV SCH (07:35)
[2021-03-18] MEDS: LACTATED RINGERS 1,000 ML IV SCH ×2 (09:26→16:01)
[2021-03-18 11:32] VITALS: BMI 24.8
[2021-03-18] MEDS ORDERED: HYDROcodone/APAP 5-325MG 1 EACH TAB PO PRN (14:06)
--- NOTE | 2021-03-18 14:10 | P.PN ---
Subjective Progress Note Date: 03/18/21 Patient seen and examined at bedside. States she did have multiple episodes of flatus this morning. Denies nausea or vomiting. States pain is pretty well controlled. Objective - Vital Signs Vital signs: Vital Signs Temp 98.6 F 03/18/21 08:00 Pulse 91 03/18/21 08:00 Resp 14 03/18/21 00:46 BP 121/66 03/18/21 08:00 Pulse Ox 92 L 03/18/21 08:00 Intake & Output 03/17/21 03/18/21 03/18/21 18:59 06:59 18:59 Output Total 1450 Balance -1450 Weight 55.792 kg Output: Gastric Drainage 150 Urine 1300 Other: Voiding Method Indwelling Catheter # Voids 3 - Constitutional General appearance: Present: cooperative, no acute distress - Respiratory Details: No difficulty with respiration - Gastrointestinal Gastrointestinal Comment(s): Soft, nontender, nondistended, no rebound, no guarding, midline incision with surgical dressing in place - Psychiatric Psychiatric: Present: A&O x's 3 - Labs CBC & Chem 7: 03/16/21 10:33 03/16/21 10:33 Assessment and Plan Plan: Postoperative day #4, exploratory laparotomy, reduction of intussusception, small bowel resection. - Patient is beginning to have bowel function and did have flatus this morning. We will remove the nasogastric tube and start the patient on clear liquid diet. We will await further bowel function and advance diet based on further bowel function. - Continue to increase activity, continue incentive spirometry. - Epidural and Welch catheter removed yesterday. Patient on IV and oral pain medication as necessary. - Continue medical management, appreciate recommendations. - Awaiting pathology
[2021-03-18] MEDS: ATORVASTATIN 10 MG TAB PO SCH (19:29)
[2021-03-19] MEDS: LACTATED RINGERS 1,000 ML IV SCH (02:04)
[2021-03-19] MEDS: metroNIDAZOLE-NS PMX 500 MG in SALINE 1 100ML.BAG IVPB SCH ×3 (02:04→19:18)
[2021-03-19] MEDS: PANTOPRAZOLE 40 MG/10 ML VIAL IV SCH (08:23)
[2021-03-19] MEDS: HEPARIN SODIUM,PORCINE/PF 5,000 UNIT/0.5 ML SYRINGE SQ SCH ×3 (08:24→23:27)
--- NOTE | 2021-03-19 08:43 | P.PN ---
Subjective Progress Note Date: 03/19/21 Patient seen and examined at bedside. She reports that she has had a significant amount of flatus in the past 24 hours. She states she has had a small bowel movement. She is tolerating clear liquid diet without nausea or vomiting. Denies any significant abdominal pain. Objective - Vital Signs Vital signs: Vital Signs Temp 98.5 F 03/19/21 02:01 Pulse 76 03/19/21 02:01 Resp 16 03/19/21 02:01 BP 125/63 03/19/21 02:01 Pulse Ox 95 03/19/21 08:37 Intake & Output 03/18/21 03/19/21 03/19/21 18:59 06:59 18:59 Intake Total 100 Balance 100 Weight 55.792 kg Intake: Intake, IV Titration 100 Amount cefTRIAXone 1 gm In 100 Sodium Chloride 0.9% 50 ml @ 100 mls/hr IVPB [facility] Rx#:[id number] Other: Voiding Method Toilet # Voids 1 1 - Constitutional General appearance: Present: cooperative, no acute distress - Respiratory Details: No difficulty with respiration - Gastrointestinal Gastrointestinal Comment(s): Soft, appropriate incisional tenderness, nondistended, no rebound, no guarding - Psychiatric Psychiatric: Present: A&O x's 3 - Labs CBC & Chem 7: 03/16/21 10:33 03/16/21 10:33 Assessment and Plan Plan: Postoperative day #5, exploratory laparotomy, reduction of intussusception, small bowel resection. - Patient is reporting significant flatus and bowel movement, will advance to full liquid diet - Continue to increase activity, continue incentive spirometry. - Hep-Lock IV - Continue medical management, appreciate recommendations. - Awaiting pathology - Likely discharge in 24 to 48 hours
--- NOTE | 2021-03-19 13:06 | P.PN ---
Subjective Progress Note Date: 03/18/21 This is a 70-year-old status post laparotomy, bowel resection with end to end anastomosis secondary to intussusception. Reports she has been up in the chair. Eagerly awaiting to ambulate. Denies nausea. Denies bowel movement or flatus,NG tube present. Pain controlled with epidural. Pathology pending. Maintained on ceftriaxone and metronidazole.Afebrile 03/18/2021 maintained on IV antibiotics, afebrile .reports ambulating, tolerating exertion well. sitting up in chair, pain solitaire denies nausea vomiting. Denies bowel movement. Positive flatus. Epidural discontinued yesterday, pain controlled on current pain regimen. Pathology pending. Objective - Vital Signs Vital signs: Vital Signs Temp 98.9 F 03/18/21 14:34 Pulse 80 03/18/21 14:34 Resp 18 03/18/21 14:34 BP 130/76 03/18/21 14:34 Pulse Ox 92 L 03/18/21 08:00 Intake & Output 03/17/21 03/18/21 03/18/21 18:59 06:59 18:59 Output Total 1450 Balance -1450 Weight 55.792 kg Output: Gastric Drainage 150 Urine 1300 Other: Voiding Method Indwelling Catheter # Voids 3 - Exam PHYSICAL EXAM: VITAL SIGNS: As above GENERAL: Alert and oriented 3, Sitting up in chair, no acute distress. HEENT: Conjunctivae normal. eyes normal. NG tube present NECK: No JVD. No thyroid enlargement. No LNs CARDIOVASCULAR: S1, S2 regular. No murmur RESPIRATION: Breath sounds diminished in the bases. No rhonchi or crackles. No bronchial breathing. ABDOMEN: Soft, nontender . Nondistended ,No guarding. Abdominal binder/dressing clean dry and intact. Hypoactive bowel sounds. LEGS: No edema. no swelling NERVOUS SYSTEM: Cranial N 2-12 grossly normal. No focal deficits.Strength and sensation grossly intact. Skin: Warm and dry, no rash. - Labs CBC & Chem 7: 03/16/21 10:33 03/16/21 10:33 Assessment and Plan Assessment: -Abdominal pain secondary to intussusception patient is status post laparotomy, bowel resection and end-to-end anastomosis. -Leukocytosis secondary to the above -Hypervolemic hyponatremia Hyperlipidemia Plan: Continue on current medication regime ,monitoring and symptomatic treatment. NG tube management as per surgery Maintain IV ceftriaxone and metronidazole. Pathology pending . Increase ambulation as tolerated. Aggressive pulmonary toileting with incentive spirometer reinforced. The impression and plan of care has been dictated as directed. : I performed a history and examination of this patient, discussed the same with the dictator. I agree with the dictator's note ,documented as a scribe. Any additional findings or plans will be noted.
--- NOTE | 2021-03-19 13:56 | P.PN ---
Subjective Progress Note Date: 03/19/21 This is a 70-year-old status post laparotomy, bowel resection with end to end anastomosis secondary to intussusception. Reports she has been up in the chair. Eagerly awaiting to ambulate. Denies nausea. Denies bowel movement or flatus,NG tube present. Pain controlled with epidural. Pathology pending. Maintained on ceftriaxone and metronidazole.Afebrile 03/18/2021 maintained on IV antibiotics, afebrile .reports ambulating, tolerating exertion well. sitting up in chair, playing [employer]. denies nausea vomiting. Denies bowel movement. Positive flatus. Epidural discontinued yesterday, pain controlled on current pain regimen. Pathology pending. 03/19/2021 Reporting small bowel movement yesterday, dark, clotty appearance, passing flatus. NG tube discontinued yesterday morning. Tolerating clear liquid diet. Denies nausea or vomiting. Pain controlled. Currently afebrile, T-max 99.1, vital signs stable, maintaining O2 sats in the high 90s on room air. Pathology pending. Objective - Vital Signs Vital signs: Vital Signs Temp 98.3 F 03/19/21 08:00 Pulse 81 03/19/21 08:00 Resp 18 03/19/21 08:00 BP 127/59 03/19/21 08:00 Pulse Ox 95 03/19/21 08:37 Intake & Output 03/18/21 03/19/21 03/19/21 18:59 06:59 18:59 Intake Total 100 120 Output Total 1 Balance 100 119 Weight 55.792 kg Intake: Intake, IV Titration 100 Amount cefTRIAXone 1 gm In 100 Sodium Chloride 0.9% 50 ml @ 100 mls/hr IVPB [facility] Rx#:[id number] Oral 120 Output: Stool 1 Other: Voiding Method Toilet # Voids 1 1 1 # Bowel Movements 2 - Exam PHYSICAL EXAM: VITAL SIGNS: As above GENERAL: Alert and oriented 3, Sitting up in chair, no acute distress. HEENT: Conjunctivae normal. eyes normal. NECK: No JVD. No thyroid enlargement. No LNs CARDIOVASCULAR: S1, S2 regular. No murmur RESPIRATION: Breath sounds diminished in the bases. No rhonchi or crackles. No bronchial breathing. ABDOMEN: Soft, nontender . Nondistended ,No guarding. Abdominal binder/dressing clean dry and intact. Hypoactive bowel sounds. LEGS: No edema. no swelling NERVOUS SYSTEM: Cranial N 2-12 grossly normal. No focal deficits.Strength and sensation grossly intact. Skin: Warm and dry, no rash. - Labs CBC & Chem 7: 03/16/21 10:33 03/16/21 10:33 Assessment and Plan Assessment: -Abdominal pain secondary to intussusception patient is status post laparotomy, bowel resection and end-to-end anastomosis. -Leukocytosis secondary to the above -Hypervolemic hyponatremia -Hyperlipidemia Plan: Continue on current medication regime ,monitoring and symptomatic treatment. Diet advancement as per surgery.Pathology pending. Continue IV antibiotics. Increase ambulation as tolerated. Aggressive pulmonary toileting with incentive spirometer reinforced. Potential discharge tomorrow as per surgery. The impression and plan of care has been dictated as directed. : I performed a history and examination of this patient, discussed the same with the dictator. I agree with the dictator's note ,documented as a scribe. Any additional findings or plans will be noted.
[2021-03-19] MEDS: ATORVASTATIN 10 MG TAB PO SCH (20:32)
[2021-03-20] MEDS: HYDROmorphone 1 MG/ML 1 ML SYRINGE IVP PRN (00:58)
[2021-03-20] MEDS: metroNIDAZOLE-NS PMX 500 MG in SALINE 1 100ML.BAG IVPB SCH ×2 (03:06→10:26)
[2021-03-20 07:44] VITALS: RESP 16
[2021-03-20] MEDS: PANTOPRAZOLE 40 MG/10 ML VIAL IV SCH (08:58)
[2021-03-20] MEDS: HEPARIN SODIUM,PORCINE/PF 5,000 UNIT/0.5 ML SYRINGE SQ SCH ×2 (08:58→16:34)
--- NOTE | 2021-03-20 14:01 | P.PN ---
Subjective Progress Note Date: 03/20/21 This is a 70-year-old status post laparotomy, bowel resection with end to end anastomosis secondary to intussusception. Reports she has been up in the chair. Eagerly awaiting to ambulate. Denies nausea. Denies bowel movement or flatus,NG tube present. Pain controlled with epidural. Pathology pending. Maintained on ceftriaxone and metronidazole.Afebrile 03/18/2021 maintained on IV antibiotics, afebrile .reports ambulating, tolerating exertion well. sitting up in chair, playing [employer]. denies nausea vomiting. Denies bowel movement. Positive flatus. Epidural discontinued yesterday, pain controlled on current pain regimen. Pathology pending. 03/19/2021 Reporting small bowel movement yesterday, dark, clotty appearance, passing flatus. NG tube discontinued yesterday morning. Tolerating clear liquid diet. Denies nausea or vomiting. Pain controlled. Currently afebrile, T-max 99.1, vital signs stable, maintaining O2 sats in the high 90s on room air. Pathology pending. 03/20/2021 tolerating clear liquid diet with no nausea vomiting or diarrhea. Positive bowel movement. Maintained on ceftriaxone, metronidazole.Pathology reporting benign submucosal lipoma with clinical evidence of intussusception and overlying/adjacent actively inflamed and hemorrhagic ischemic enteritis, benign and viable margins of resection of focal active enteritis. Denies chest pain, palpitations or shortness of breath. Afebrile, T-max 99. denies chest pain, palpitations or shortness of breath. Objective - Vital Signs Vital signs: Vital Signs Temp 98.2 F 03/20/21 07:43 Pulse 84 03/20/21 07:43 Resp 16 03/20/21 07:43 BP 132/74 03/20/21 07:43 Pulse Ox 95 03/20/21 07:43 Intake & Output 03/19/21 03/20/21 03/20/21 18:59 06:59 18:59 Intake Total 360 Output Total 2 Balance 358 Intake: Oral 360 Output: Stool 2 Other: # Voids 1 1 # Bowel Movements 2 - Exam PHYSICAL EXAM: VITAL SIGNS: As above. GENERAL: Alert and oriented 3, Sitting up in chair, no acute distress. HEENT: Conjunctivae normal. eyes normal. NECK: Supple, No JVD. CARDIOVASCULAR: S1, S2 regular. No murmur RESPIRATION: Breath sounds diminished in the bases. No rhonchi or crackles. ABDOMEN: Soft, nontender . Nondistended ,No guarding. Abdominal binder/dressing clean dry and intact. Positive bowel sounds. LEGS: No edema. no swelling NERVOUS SYSTEM: Cranial N 2-12 grossly normal. No focal deficits.Strength and sensation grossly intact. Skin: Warm and dry, no rash. - Labs CBC & Chem 7: 03/16/21 10:33 03/16/21 10:33 Assessment and Plan Assessment: -Abdominal pain secondary to intussusception patient is status post laparotomy, bowel resection and end-to-end anastomosis. Pathology reporting inflamed, hemorrhagic ischemic acute enteritis, anion final margins of resection with focal active enteritis. -Leukocytosis secondary to the above -Hypervolemic hyponatremia -Hyperlipidemia Plan: Continue on current medication regime ,monitoring and symptomatic treatment. Maintain IV antibiotics. Continue with Aggressive pulmonary toileting with incentive spirometer reinforced. Discharge planning in progress as per primary-surgery. Follow-up with PCP in 1 week. The impression and plan of care has been dictated as directed. : I performed a history and examination of this patient, discussed the same with the dictator. I agree with the dictator's note ,documented as a scribe. Any additional findings or plans will be noted.
[2021-03-20 14:43] VITALS: BP 119/66; PULSE 87; TEMP 98.7
== END 2021-03-20 17:11 | disposition home or self-care (01) | DRG 330 ==
LOC: EC 17:21 → 4SSUR 20:14
PROVIDERS: ADMIT Surgery; ATTEND Surgery
PROC: 0DB80ZZ Excision of Small Intestine, Open Approach (ICD-10-PCS; principal; 2021-03-14 21:00)
PROC: 0D180Z8 Bypass Small Intestine to Small Intestine, Open Approach (ICD-10-PCS; principal; 2021-03-14 21:00)
PROC: 0DJD0ZZ Inspection of Lower Intestinal Tract, Open Approach (ICD-10-PCS; principal; 2021-03-14 21:00)
DX: K92.2 Gastrointestinal hemorrhage, unspecified (principal); K56.1 Intussusception; E87.1 Hypo-osmolality and hyponatremia; K55.9 Vascular disorder of intestine, unspecified; D17.9 Benign lipomatous neoplasm, unspecified; E78.5 Hyperlipidemia, unspecified; E87.70 Fluid overload, unspecified; F41.9 Anxiety disorder, unspecified; Z80.0 Family history of malignant neoplasm of digestive organs; Z90.710 Acquired absence of both cervix and uterus; Z98.51 Tubal ligation status; Z98.890 Other specified postprocedural states; Z88.4 Allergy status to anesthetic agent; Z88.0 Allergy status to penicillin; Z20.822 Contact with and (suspected) exposure to COVID-19
CPT/HCPCS: 36415; 74174; 80048; 80053; 82272; 83605; 83690; 83735; 85025; 85610; 85730; 86850; 86900; 86901; 87635; 88307; 93005; 94760; 96374; 96375; 99285

== ENCOUNTER → 2022-08-12 | Outpatient (CLI) | payer MEDICARE ==
--- NOTE | 2022-08-13 07:14 | MM ---
Reason for Exam: Screening (asymptomatic). Last mammogram was performed 1 year(s) and 10 month(s) ago. Patient History: Menarche at age 15. First Full-Term at age 23. Hysterectomy at age 51. Postmenopausal. Patient used Hormonal Contraceptives for 2 years. Bilateral Implants. Implant on the right side. Implant on the left side. Maternal grandmother had breast cancer. Risk Values: Anna 5 year model risk: 1.4%. NCI Lifetime model risk: 4.1%. Prior Study Comparison: 12/26/2014 Screening Mammogram, Unknown. 06/09/2018 Bilateral Screening Mammogram, [facility]. 10/17/2020 Bilateral Screening Mammogram, [facility]. Tissue Density: The breast tissue is heterogeneously dense. This may lower the sensitivity of mammography. Findings: Analyzed By CAD. There is no suspicious group of microcalcifications or new suspicious mass in either breast. Bilateral breast implants are intact. Overall Assessment: Benign, BI-RAD 2 Management: Screening Mammogram of both breasts in 1 year. A clinical breast exam by your physician is recommended on an annual basis and results should be correlated with mammographic findings. Note on Anna scores and lifetime risk: 1. A Anna score greater than 3% is considered moderate risk. If this is the case, consider specialist referral to assess eligibility for a risk reducing agent. If overall lifetime risk for the development of breast cancer is 20% or higher, the patient may qualify for future screening with alternating mammogram and breast MRI. Electronically signed and approved by: Cas Lezama D.O.
== END | disposition home or self-care (01) ==
LOC: RADMAMWWP 13:39
PROVIDERS: ATTEND Family Medicine
DX: Z12.31 Encounter for screening mammogram for malignant neoplasm of breast (principal); Z78.0 Asymptomatic menopausal state; Z80.3 Family history of malignant neoplasm of breast
CPT/HCPCS: 77063; 77067

== ENCOUNTER → 2023-08-24 | Outpatient (CLI) | payer MEDICARE ==
--- NOTE | 2023-08-24 16:12 | MM ---
Reason for Exam: Screening (asymptomatic). Last screening mammogram was performed 12 month(s) ago. Patient History: Menarche at age 15. First Full-Term at age 23. Hysterectomy at age 51. Postmenopausal. Patient used Hormonal Contraceptives for 2 years. Bilateral Implants. Implant on the right side. Implant on the left side. Maternal grandmother had breast cancer. Risk Values: Anna 5 year model risk: 1.4%. NCI Lifetime model risk: 4.0%. Prior Study Comparison: 06/09/2018 Bilateral Screening Mammogram, [facility]. 10/17/2020 Bilateral Screening Mammogram, [facility]. 08/12/2022 Bilateral MG 3D screen mammo imp/cad., [facility]. Tissue Density: The breasts are heterogeneously dense, which may obscure small masses. Findings: Analyzed By CAD. The pattern is symmetrical. Bilateral breast prostheses are present. No suspicious groups of microcalcifications, spiculated or lobular masses, architectural distortion or other secondary signs of malignancy are mammographically apparent. Overall Assessment: Benign, BI-RAD 2 Management: Screening Mammogram of both breasts in 1 year. A negative mammogram report should not preclude additional follow up of suspicious palpable abnormalities. Patient should continue monthly self breast exam. A clinical breast exam by your physician is recommended on an annual basis and results should be correlated with mammographic findings. Note on Anna scores and lifetime risk: 1. A Anna score greater than 3% is considered moderate risk. If this is the case, consider specialist referral to assess eligibility for a risk reducing agent. 2. If overall lifetime risk for the development of breast cancer is 20% or higher, the patient may qualify for future screening with alternating mammogram and breast MRI. Electronically signed and approved by: Miguel Angel Segundo D.O. Radiologis
== END | disposition home or self-care (01) ==
LOC: RADMAMWWP 08:50
PROVIDERS: ATTEND Family Medicine
DX: Z12.31 Encounter for screening mammogram for malignant neoplasm of breast (principal); Z78.0 Asymptomatic menopausal state; Z80.3 Family history of malignant neoplasm of breast
CPT/HCPCS: 77063; 77067